=== PATIENT | male | born 1950 | race African-American/Black ===

== ENCOUNTER 2018-08-21 20:27 | Inpatient (IN) | payer OTHER ==
[~2018-08-21] VITALS: Ht 170.2 cm; Wt 96.2 kg
[~2018-08-21 20:27] MED LIST: DILT240C92 PO; METO-539 PO
[2018-08-21] MEDS ORDERED: METHYLPREDNISOLONE SOD SUCC 125 MG/2 ML VIAL IV ONE (21:45)
[2018-08-21] MEDS ORDERED: LEVOFLOXACIN 500MG PREMIX 100 ML IV ONE (21:45)
[2018-08-21] MEDS ORDERED: IPRATROPIUM/ALBUTEROL 0.5-3(2.5)MG/3ML NEB HHN ONE (21:45)
[2018-08-21 23:16] LABS: EOSINOPHILS % 0.9 % (0.0-5.0); HEMATOCRIT. 37.5 % (42.0-52.0); HEMOGLOBIN. 12.1 g/dL (14.0-18.0); LYMPHOCYTES % 34.9 % (20.0-50.0); MEAN CORPUSCULAR HEMOGLOBIN 28.7 pg (28.0-32.0); MEAN CORPUSCULAR VOLUME 88.8 fL (80.0-94.0); MEAN PLATELET VOLUME 8.2 fl (7.4-10.4); MONOCYTES % 10.8 % (2.0-8.0); NEUTROPHILS % 52.4 % (40.0-76.0); PLATELET 223 x1000/uL (130-400); RED BLOOD CELL COUNT 4.22 mill/uL (4.7-6.1); RED CELL DISTRIBUTION WIDTH 14.7 % (11.6-14.6)
[2018-08-21 23:21] LABS: CHLORIDE 107 mEq/L (98-107)
[2018-08-21 23:23] LABS: INR 1.3; PARTIAL THROMBOPLASTIN TIME 33.4 sec (23.4-31.0); PROTHROMBIN TIME 13.3 sec (9.1-11.1)
[2018-08-22] VITALS (20 sets, daily range): BP systolic 84–167; BP diastolic 40–127
[2018-08-22] MEDS ORDERED: ASPIRIN 325MG EC TABLET PO ONE (01:45)
[2018-08-22] MEDS ORDERED: FUROSEMIDE 40MG/4ML VIAL IVP ONE (01:45)
[2018-08-22] MEDS ORDERED: MAGNESIUM/ALUMINUM HYDROXIDE/SIMETHICONE 30ML UDC PO PRN (02:45)
[2018-08-22] MEDS ORDERED: CLONIDINE 0.1MG TABLET PO PRN (02:45)
[2018-08-22] MEDS ORDERED: ONDANSETRON HCL 4MG/2ML INJ IV PRN (02:45)
[2018-08-22] MEDS ORDERED: IPRATROPIUM/ALBUTEROL 0.5-3(2.5)MG/3ML NEB INH PRN (02:45)
[2018-08-22] MEDS ORDERED: GUAIFENESIN 200MG/10ML SUGAR FREE UDC PO PRN (02:45)
[2018-08-22] MEDS ORDERED: ACETAMINOPHEN 325MG TABLET PO PRN (02:45)
[2018-08-22] MEDS: IPRATROPIUM/ALBUTEROL 0.5-3(2.5)MG/3ML NEB HHN SCH ×4 (04:14→15:43)
[2018-08-22] MEDS: SODIUM CHLORIDE 0.9% INJ 3ML FLUSH IVF SCH ×3 (05:26→22:00)
[2018-08-22] MEDS: FAMOTIDINE 20MG TABLET PO SCH ×2 (08:52→21:40)
[2018-08-22] MEDS: FUROSEMIDE 40MG/4ML VIAL IVP SCH (08:52)
[2018-08-22] MEDS ORDERED: ENOXAPARIN 30MG/0.3ML SYR SUBCUT SCH (09:00)
[2018-08-22] MEDS ORDERED: AMIODARONE HCL 150 MG in DEXT 5% WATER 100 ML IV SCH (17:00)
[2018-08-22] MEDS ORDERED: AMIODARONE HCL 900 MG in DEXT 5% WATER 482 ML IV PRN (17:00)
[2018-08-22] MEDS ORDERED: MORPHINE SULFATE 4 MG/ML CPJ (NOT FOR IM USE) IV ONE (17:08)
[2018-08-22] MEDS ORDERED: MORPHINE SULFATE 4 MG/ML CPJ (NOT FOR IM USE) IV NR (17:15)
[2018-08-22] MEDS ORDERED: MORPHINE SULFATE 10 MG/ML CPJ ONE (17:18)
[2018-08-22] MEDS ORDERED: IPRATROPIUM BROMIDE (0.02%) 0.5MG/2.5ML NEB HHN PRN (17:30)
[2018-08-22] MEDS ORDERED: DILTIAZEM HCL 60MG TABLET PO SCH (18:19)
[2018-08-22] MEDS ORDERED: MORPHINE SULFATE 4 MG/ML CPJ (NOT FOR IM USE) IV SCH (19:30)
[2018-08-22] MEDS ORDERED: TEMAZEPAM 15MG CAPSULE PO PRN (20:00)
[2018-08-22] MEDS ORDERED: METOPROLOL TARTRATE 50MG TABLET PO SCH (21:00)
[2018-08-22] MEDS: ENOXAPARIN 100MG/ML SYR SUBCUT SCH (21:44)
[2018-08-23] VITALS (37 sets, daily range): BP systolic 103–165; BP diastolic 60–108
[2018-08-23 05:08] LABS: *AMPHETAMINES SCREEN URINE NEGATIVE (NEGATIVE); *BARBITURATES SCREEN URINE NEGATIVE (NEGATIVE); *BENZODIAZEPINES SCREEN URINE NEGATIVE (NEGATIVE)
[2018-08-23 05:09] LABS: *COCAINE SCREEN URINE NEGATIVE (NEGATIVE); CANNABINOID URINE SCREEN NEGATIVE (NEGATIVE); METHADONE URINE SCREEN NEGATIVE (NEGATIVE); OPIATES URINE SCREEN PRESUMTIVE POSITIVE (NEGATIVE); PHENCYCLIDINE URINE SCREEN NEGATIVE (NEGATIVE)
[2018-08-23 05:34] LABS: BASOPHILS % 0.2 % (0.0-2.0); HEMATOCRIT. 37.1 % (42.0-52.0); HEMOGLOBIN. 11.9 g/dL (14.0-18.0); LYMPHOCYTES % 9.8 % (20.0-50.0); MEAN CORPUSCULAR HEMOGLOBIN 28.6 pg (28.0-32.0); MEAN CORPUSCULAR VOLUME 89.3 fL (80.0-94.0); MEAN PLATELET VOLUME 8.2 fl (7.4-10.4); PLATELET 193 x1000/uL (130-400); RED BLOOD CELL COUNT 4.16 mill/uL (4.7-6.1); RED CELL DISTRIBUTION WIDTH 14.6 % (11.6-14.6)
[2018-08-23 05:55] LABS: PHOSPHORUS 3.8 mg/dL (2.5-4.9)
[2018-08-23 06:01] LABS: CREATINE KINASE MB FRACTION 2.1 ng/mL (0.5-3.6)
[2018-08-23] MEDS: SODIUM CHLORIDE 0.9% INJ 3ML FLUSH IVF SCH ×3 (06:43→22:36)
[2018-08-23] MEDS ORDERED: MAGNESIUM 2 G PREMIX 50 ML IV ONE (08:30)
[2018-08-23] MEDS ORDERED: MAGNESIUM 2 G PREMIX 50 ML IV SCH (09:00)
[2018-08-23] MEDS: MORPHINE SULFATE 4 MG/ML CPJ (NOT FOR IM USE) IV PRN (09:29)
[2018-08-23] MEDS: FAMOTIDINE 20MG TABLET PO SCH ×2 (09:29→22:34)
[2018-08-23] MEDS: FUROSEMIDE 40MG/4ML VIAL IVP SCH (09:29)
[2018-08-23] MEDS: ENOXAPARIN 100MG/ML SYR SUBCUT SCH ×2 (09:30→22:35)
[2018-08-23] MEDS: HYDROCODONE/ACETAMINOPHEN 10/325MG TABLET PO PRN ×2 (16:00→19:57)
[2018-08-23] MEDS ORDERED: AMIODARONE HCL 200 MG TABLET PO SCH (18:00)
[2018-08-23] MEDS: DILTIAZEM HCL 60MG TABLET PO SCH ×2 (18:17→22:38)
[2018-08-23] MEDS: AMIODARONE HCL 200 MG TABLET PO SCH (18:18)
[2018-08-24] VITALS (41 sets, daily range): BP systolic 115–176; BP diastolic 61–134
[2018-08-24] MEDS: SODIUM CHLORIDE 0.9% INJ 3ML FLUSH IVF SCH ×2 (05:00→13:27)
[2018-08-24 05:15] LABS: BASOPHILS % 0.6 % (0.0-2.0); EOSINOPHILS % 0.4 % (0.0-5.0); HEMATOCRIT. 38.4 % (42.0-52.0); HEMOGLOBIN. 12.6 g/dL (14.0-18.0); LYMPHOCYTES % 28.1 % (20.0-50.0); MEAN CORPUSCULAR HEMOGLOBIN 29.1 pg (28.0-32.0); MEAN PLATELET VOLUME 8.1 fl (7.4-10.4); NEUTROPHILS % 58.9 % (40.0-76.0); PLATELET 203 x1000/uL (130-400); RED BLOOD CELL COUNT 4.31 mill/uL (4.7-6.1)
[2018-08-24] MEDS: DILTIAZEM HCL 60MG TABLET PO SCH ×2 (05:39→13:26)
[2018-08-24] MEDS: MORPHINE SULFATE 4 MG/ML CPJ (NOT FOR IM USE) IV PRN (08:45)
[2018-08-24] MEDS: FUROSEMIDE 40MG/4ML VIAL IVP SCH (08:54)
[2018-08-24] MEDS: AMIODARONE HCL 200 MG TABLET PO SCH (08:56)
[2018-08-24] MEDS: FAMOTIDINE 20MG TABLET PO SCH (08:57)
[2018-08-24] MEDS: ENOXAPARIN 100MG/ML SYR SUBCUT SCH (08:57)
[2018-08-24] MEDS: HYDROCODONE/ACETAMINOPHEN 10/325MG TABLET PO PRN (15:58)
[2018-08-25] MEDS ORDERED: FAMOTIDINE 20MG TABLET PO SCH (09:00)
== END 2018-08-24 21:15 | disposition short-term general hospital (02) | DRG 308 ==
LOC: ER 20:27 → 7WST 08-22 01:31 → EDBEDREQ 08-22 01:39 → EDBEDREQDT 08-22 01:39 → EDBEDREQTM 08-22 01:39 → ENRESERV 08-22 01:51 → 3WST 08-22 17:11 → CVICU 08-22 17:15
PROVIDERS: ADMIT Internal Medicine; ATTEND Internal Medicine
DX: I47.1 Supraventricular tachycardia (principal); I50.43 Acute on chronic combined systolic (congestive) and diastolic (congestive) heart failure; E44.1 Mild protein-calorie malnutrition; I38 Endocarditis, valve unspecified; I42.9 Cardiomyopathy, unspecified; I11.0 Hypertensive heart disease with heart failure; I48.92 Unspecified atrial flutter; S76.011A Strain of muscle, fascia and tendon of right hip, initial encounter; M54.31 Sciatica, right side; X58.XXXA Exposure to other specified factors, initial encounter; E66.9 Obesity, unspecified; I25.10 Atherosclerotic heart disease of native coronary artery without angina pectoris; J44.9 Chronic obstructive pulmonary disease, unspecified; Z82.49 Family history of ischemic heart disease and other diseases of the circulatory system; Z86.73 Personal history of transient ischemic attack (TIA), and cerebral infarction without residual deficits; Z95.1 Presence of aortocoronary bypass graft; Z95.2 Presence of prosthetic heart valve; Z68.33 Body mass index [BMI] 33.0-33.9, adult; Z79.899 Other long term (current) drug therapy; Y93.89 Activity, other specified; Y92.89 Other specified places as the place of occurrence of the external cause; Y99.8 Other external cause status
CPT/HCPCS: 36415; 71045; 73502; 80048; 80305; 82550; 82553; 83735; 83880; 84100; 84484; 93005; 93306; 93970; 94640; 96365; 96375; 99285; J0282; J1650; J1940; J1956; J2270; J2930; J3475; J7050; J7060; J7620

== ENCOUNTER 2018-09-13 01:17 | Emergency (ER) | payer OTHER, MEDICARE ==
[~2018-09-13] VITALS: Ht 170.2 cm; Wt 103.0 kg
[2018-09-13 09:07] VITALS: BP 138/66
== END 2018-09-13 09:13 | disposition home or self-care (01) ==
LOC: ER 01:17
DX: G47.00 Insomnia, unspecified (principal); I10 Essential (primary) hypertension; Z86.73 Personal history of transient ischemic attack (TIA), and cerebral infarction without residual deficits; Z95.0 Presence of cardiac pacemaker
CPT/HCPCS: 71045; 99283

== ENCOUNTER 2025-01-17 15:45 | Inpatient (IN) | payer OTHER, MEDICARE ==
[~2025-01-17] VITALS: Ht 167.6 cm; Wt 101.2 kg
[~2025-01-17 15:45] MED LIST changes: +DILT240C78 PO; -DILT240C92 PO
[2025-01-17 16:16] LABS: HEMATOCRIT. 34.5 % (42.0-52.0); LYMPHOCYTES % 33.2 % (20.0-50.0); MEAN CORPUSCULAR HEMOGLOBIN 27.1 pg (28.0-32.0); MEAN CORPUSCULAR HGB CONC 31.9 g/dL (31.0-37.0); MEAN CORPUSCULAR VOLUME 85.1 fL (80.0-94.0); MEAN PLATELET VOLUME 7.4 fl (7.4-10.4); MONOCYTES % 12.5 % (2.0-8.0); NEUTROPHILS % 52.3 % (40.0-76.0); PLATELET 200 x1000/uL (130-400); RED BLOOD CELL COUNT 4.05 mill/uL (4.7-6.1); RED CELL DISTRIBUTION WIDTH 16.6 % (11.6-14.6); WHITE BLOOD COUNT 7.1 x1000/uL (4.5-11.0)
[2025-01-17 16:25] LABS: CHLORIDE 107 mEq/L (98-107); POTASSIUM 3.9 mEq/L (3.5-5.1); SODIUM 142 mEq/L (136-145)
[2025-01-17 16:26] LABS: CALCIUM 9.8 mg/dL (8.7-10.4); CARBON DIOXIDE 24 mEq/L (21-32)
[2025-01-17 16:31] LABS: CREATININE 1.9 mg/dL (0.6-1.3); GLUCOSE 104 mg/dL (70-105)
[2025-01-17 16:32] LABS: UREA NITROGEN BLOOD 32 mg/dL (9-23)
[2025-01-17 16:33] LABS: ALANINE AMINOTRANSFERASE 26 IU/L (10-49); ALBUMIN 4.2 g/dL (3.2-4.8); ASPARTATE AMINOTRANSFERASE 27 IU/L (<34); BILIRUBIN DIRECT < 0.1 mg/dL (<=3.0)
[2025-01-17 16:34] LABS: BILIRUBIN TOTAL 0.3 mg/dL (0.1-1.0); PROTEIN TOTAL 7.8 g/dL (6.0-8.3)
[2025-01-17 16:43] LABS: TROPONIN I HIGH SENSITIVITY 185 ng/L (3.0-53)
[2025-01-17] MEDS: ACETAMINOPHEN 325MG TABLET PO ONE (17:23)
[2025-01-17 19:50] LABS: TROPONIN I HIGH SENSITIVITY 192 ng/L (3.0-53)
[2025-01-17] MEDS ORDERED: IPRATROPIUM/ALBUTEROL 0.5-3(2.5)MG/3ML NEB HHN PRN (22:00)
[2025-01-17] MEDS ORDERED: MAGNESIUM/ALUMINUM HYDROXIDE/SIMETHICONE 30ML UDC PO PRN (22:00)
[2025-01-17] MEDS ORDERED: CLONIDINE 0.1MG TABLET PO PRN (22:00)
[2025-01-17] MEDS ORDERED: ACETAMINOPHEN 325MG TABLET PO PRN (22:00)
[2025-01-17] MEDS ORDERED: ENOXAPARIN 80MG/0.8ML SYR SUBCUT ONE (22:45)
[2025-01-17 23:00] VITALS: BP 144/65; PULSE 70; RESP 16; TEMP 36.5; O2SAT 98
[2025-01-17 23:15] VITALS: BP 144/65; PULSE 69; RESP 16; TEMP 36.5
[2025-01-17] MEDS: ACETAMINOPHEN 325MG TABLET PO PRN (23:39)
[2025-01-18] MEDS: ENOXAPARIN 100MG/ML SYR SUBCUT SCH (00:08)
[2025-01-18] MEDS ORDERED: AMLO5TAB88 PO (00:26)
[2025-01-18] MEDS: ONDANSETRON HCL 4MG/2ML INJ IV PRN (01:13)
[2025-01-18 01:45] LABS: INR 2.4
[2025-01-18 04:00] VITALS: BP 106/52; PULSE 70; RESP 16; TEMP 36.4; O2SAT 98
[2025-01-18] MEDS: HYDRALAZINE HCL 25MG TABLET PO SCH (06:00)
[2025-01-18 08:00] VITALS: BP 139/66; PULSE 70; RESP 18; TEMP 36.4; O2SAT 97
[2025-01-18 09:27] LABS: HEMATOCRIT. 36.8 % (42.0-52.0); HEMOGLOBIN. 11.6 g/dL (14.0-18.0); MEAN CORPUSCULAR HEMOGLOBIN 27.1 pg (28.0-32.0); MEAN CORPUSCULAR HGB CONC 31.5 g/dL (31.0-37.0); MEAN CORPUSCULAR VOLUME 85.9 fL (80.0-94.0); MEAN PLATELET VOLUME 8.3 fl (7.4-10.4); PLATELET 205 x1000/uL (130-400); RED BLOOD CELL COUNT 4.29 mill/uL (4.7-6.1); RED CELL DISTRIBUTION WIDTH 16.6 % (11.6-14.6); WHITE BLOOD COUNT 5.6 x1000/uL (4.5-11.0)
[2025-01-18 09:37] LABS: DIFFERENTIAL COMMENT 1
[2025-01-18 09:48] LABS: TROPONIN I HIGH SENSITIVITY 205 ng/L (3.0-53)
[2025-01-18 09:50] LABS: T4 FREE 0.97 ng/dL (0.89-1.76); THYROID STIMULATING HORMONE 5.15 uIU/mL (0.55-4.78)
[2025-01-18] MEDS: ASPIRIN 81MG EC TABLET PO SCH (10:22)
[2025-01-18] MEDS: AMLODIPINE 5MG TABLET PO SCH (10:22)
[2025-01-18] MEDS: METOPROLOL TARTRATE 25MG TABLET PO SCH (10:23)
[2025-01-18 12:00] VITALS: BP 125/42; PULSE 72; RESP 18; TEMP 36.4; O2SAT 98
[2025-01-18] MEDS: FUROSEMIDE 40MG TABLET PO SCH (14:35)
[2025-01-18] MEDS: ALLOPURINOL 100 MG TABLET PO SCH (14:35)
[2025-01-18] MEDS: NITROGLYCERIN 0.4MG TABLET SL SL PRN (14:43)
[2025-01-18 16:00] VITALS: BP 115/62; PULSE 67; RESP 18; TEMP 36.8; O2SAT 96
[2025-01-18 17:10] LABS: CREATINE KINASE MB FRACTION 0.5 ng/mL (0.5-3.6)
[2025-01-18] MEDS: DOCUSATE SODIUM 100MG CAPSULE PO PRN (17:41)
[2025-01-18] MEDS: WARFARIN SODIUM 5MG TABLET PO SCH (18:27)
[2025-01-18 19:34] LABS: PLATELET ESTIMATE NORMAL
[2025-01-18 20:00] VITALS: BP 110/63; PULSE 70; RESP 18; TEMP 36.3; O2SAT 97
[2025-01-18] MEDS: ATORVASTATIN CALCIUM 20MG TABLET PO SCH (21:23)
[2025-01-18] MEDS: ISOSORBIDE DINITRATE 20MG TABLET PO SCH (21:25)
[2025-01-18 21:28] LABS: TROPONIN I HIGH SENSITIVITY 187 ng/L (3.0-53)
[2025-01-19] VITALS: BP 112/61; PULSE 70; RESP 18; TEMP 36.3; O2SAT 93
[2025-01-19 01:19] LABS: CREATINE KINASE MB FRACTION < 0.5 ng/mL (0.5-3.6)
[2025-01-19 01:20] LABS: CREATINE KINASE 70 IU/L (46-171)
[2025-01-19 01:24] LABS: TROPONIN I HIGH SENSITIVITY 176 ng/L (3.0-53)
[2025-01-19 04:00] VITALS: BP 129/74; PULSE 70; RESP 19; TEMP 36.4; O2SAT 95
[2025-01-19 08:00] VITALS: BP 121/60; PULSE 70; RESP 18; TEMP 36.5; O2SAT 97
[2025-01-19 08:23] LABS: HEMOGLOBIN. 10.8 g/dL (14.0-18.0); MEAN CORPUSCULAR HEMOGLOBIN 27.3 pg (28.0-32.0); MEAN CORPUSCULAR HGB CONC 31.8 g/dL (31.0-37.0); MEAN CORPUSCULAR VOLUME 85.7 fL (80.0-94.0); MEAN PLATELET VOLUME 7.8 fl (7.4-10.4); PLATELET 188 x1000/uL (130-400); RED BLOOD CELL COUNT 3.97 mill/uL (4.7-6.1); RED CELL DISTRIBUTION WIDTH 16.5 % (11.6-14.6); WHITE BLOOD COUNT 5.5 x1000/uL (4.5-11.0)
[2025-01-19 08:35] LABS: CREATINE KINASE MB FRACTION 0.5 ng/mL (0.5-3.6)
[2025-01-19 08:37] LABS: DIFFERENTIAL COMMENT 1
[2025-01-19] MEDS ORDERED: ENOXAPARIN 100MG/ML SYR SUBCUT SCH (09:00)
[2025-01-19 09:09] LABS: INR 1.9; PROTHROMBIN TIME 19.1 sec (9.6-11.0)
[2025-01-19 10:28] LABS: POTASSIUM 3.8 mEq/L (3.5-5.1)
[2025-01-19 10:30] LABS: CALCIUM 9.1 mg/dL (8.7-10.4)
[2025-01-19 10:35] LABS: CREATININE 1.8 mg/dL (0.6-1.3)
[2025-01-19 12:00] VITALS: BP 112/51; PULSE 69; RESP 18; TEMP 36.5; O2SAT 96
[2025-01-19 16:00] VITALS: BP 121/60; PULSE 70; RESP 18; TEMP 36.5; O2SAT 97
[2025-01-19] MEDS ORDERED: POTA-204 PO (16:41)
[2025-01-19] MEDS ORDERED: ISOS20TA8 PO (16:41)
[2025-01-19] MEDS ORDERED: FURO40TA5 PO (16:41)
[2025-01-19] MEDS ORDERED: HYDR25TA78 PO (16:41)
[2025-01-19] MEDS ORDERED: ATOR20TA65 PO (16:41)
[2025-01-19] MEDS ORDERED: MIRT-89 PO (16:41)
[2025-01-19] MEDS ORDERED: ALLO100T PO (16:41)
[2025-01-19 17:34] LABS: PLATELET ESTIMATE NORMAL
[2025-01-19 20:00] VITALS: BP 103/49; PULSE 72; RESP 18; TEMP 36.7; O2SAT 98
[2025-01-19] MEDS: TRAMADOL 50MG TABLET PO NR (21:44)
[2025-01-20 00:40] VITALS: BP 99/56; PULSE 70; RESP 18; TEMP 36.7; O2SAT 95
[2025-01-20 04:00] VITALS: BP 119/77; PULSE 70; RESP 18; TEMP 36.4; O2SAT 96
[2025-01-20 06:37] LABS: INR 1.8; PROTHROMBIN TIME 18.7 sec (9.6-11.0)
[2025-01-20 06:47] LABS: HEMATOCRIT. 35.2 % (42.0-52.0); HEMOGLOBIN. 11.3 g/dL (14.0-18.0); MEAN CORPUSCULAR HEMOGLOBIN 27.5 pg (28.0-32.0); MEAN CORPUSCULAR VOLUME 85.8 fL (80.0-94.0); MEAN PLATELET VOLUME 7.9 fl (7.4-10.4); PLATELET 192 x1000/uL (130-400); RED BLOOD CELL COUNT 4.11 mill/uL (4.7-6.1); RED CELL DISTRIBUTION WIDTH 16.4 % (11.6-14.6); WHITE BLOOD COUNT 6.3 x1000/uL (4.5-11.0)
[2025-01-20 07:06] LABS: DIFFERENTIAL COMMENT 1
[2025-01-20 08:00] VITALS: BP 106/46; PULSE 70; RESP 18; TEMP 36.6; O2SAT 96
[2025-01-20] MEDS: MORPHINE SULFATE 2 MG/ML INJ (NOT FOR IM USE) IV NR (11:02)
[2025-01-20 11:33] LABS: PLATELET ESTIMATE NORMAL
[2025-01-20 12:00] VITALS: BP 128/63; PULSE 70; RESP 15; TEMP 36.4; O2SAT 96
[2025-01-20] MEDS ORDERED: WARF-53 PO (14:06)
[2025-01-20] MEDS ORDERED: BISO5TAB13 PO (14:10)
[2025-01-20 16:00] VITALS: BP 131/63; PULSE 66; RESP 16; TEMP 36.2; O2SAT 97
[2025-01-20] MEDS: WARFARIN SODIUM 7.5MG TABLET PO SCH (18:30)
[2025-01-20 20:00] VITALS: BP 120/55; PULSE 67; RESP 18; TEMP 36.4; O2SAT 97
[2025-01-20] MEDS: ENOXAPARIN 100MG/ML SYR SUBCUT SCH (22:42)
[2025-01-21] VITALS (7 sets, daily range): BP systolic 104–132; BP diastolic 39–63; PULSE 67–73; RESP 18–20; TEMP 36.3–37.2; O2SAT 93–98
[2025-01-21] MEDS: TRAMADOL 50MG TABLET PO PRN (00:15)
[2025-01-21 07:43] LABS: HEMOGLOBIN. 11.5 g/dL (14.0-18.0); MEAN CORPUSCULAR HEMOGLOBIN 27.3 pg (28.0-32.0); MEAN CORPUSCULAR HGB CONC 31.8 g/dL (31.0-37.0); MEAN CORPUSCULAR VOLUME 85.9 fL (80.0-94.0); MEAN PLATELET VOLUME 8.4 fl (7.4-10.4); PLATELET 181 x1000/uL (130-400); RED BLOOD CELL COUNT 4.19 mill/uL (4.7-6.1); RED CELL DISTRIBUTION WIDTH 16.5 % (11.6-14.6); WHITE BLOOD COUNT 8.8 x1000/uL (4.5-11.0)
[2025-01-21 07:55] LABS: DIFFERENTIAL COMMENT 1
[2025-01-21 07:58] LABS: INR 1.8; PROTHROMBIN TIME 18.5 sec (9.6-11.0)
[2025-01-21 10:27] LABS: PLATELET ESTIMATE NORMAL
[2025-01-21] MEDS ORDERED: WARFARIN SODIUM 7.5MG TABLET PO NR (18:00)
== END 2025-01-21 18:44 | disposition short-term general hospital (02) | DRG 281 ==
LOC: ER 15:45 → 5WST 21:14 → EDBEDREQTM 21:23 → EDBEDREQ 21:23
PROVIDERS: ADMIT Internal Medicine; ATTEND Internal Medicine
DX: I21.4 Non-ST elevation (NSTEMI) myocardial infarction (principal); I13.0 Hypertensive heart and chronic kidney disease with heart failure and stage 1 through stage 4 chronic kidney disease, or unspecified chronic kidney disease; N17.9 Acute kidney failure, unspecified; I25.10 Atherosclerotic heart disease of native coronary artery without angina pectoris; I48.91 Unspecified atrial fibrillation; I50.9 Heart failure, unspecified; E78.5 Hyperlipidemia, unspecified; N18.9 Chronic kidney disease, unspecified; Z95.0 Presence of cardiac pacemaker; Z95.1 Presence of aortocoronary bypass graft; Z86.73 Personal history of transient ischemic attack (TIA), and cerebral infarction without residual deficits; Z79.01 Long term (current) use of anticoagulants; Z79.82 Long term (current) use of aspirin; Z79.899 Other long term (current) drug therapy
CPT/HCPCS: 36415; 71045; 80048; 80061; 80076; 82550; 82553; 83036; 83880; 84439; 84443; 84484; 85025; 85379; 93005; 93306; 93970; 99291; A4606; J1650; J2270; J2405